=== PATIENT | male | born 1990 | race Caucasian/White ===

== ENCOUNTER 2020-01-14 23:41 | Emergency (ER) | payer BC ==
[~2020-01-14] VITALS: Ht 180.3 cm; Wt 102.3 kg
[2020-01-14 23:45] VITALS: Ht 180.3 cm; Wt 102.3 kg
[2020-01-14] MEDS ORDERED: ADDERALL 30 MG30 MG PO (23:46)
[2020-01-15 00:22] LABS: SPECIFIC GRAVITY 1.015 (1.005-1.020)
[2020-01-15 00:23] LABS: BILIRUBIN NEGATIVE (NEGATIVE); GLUCOSE NEGATIVE (NEGATIVE); KETONE NEGATIVE (NEGATIVE); NITRITE NEGATIVE (NEGATIVE); UROBILINOGEN NORMAL (NORMAL)
[2020-01-15 00:35] VITALS: BP 147/90
== END 2020-01-15 00:32 | disposition home or self-care (01) ==
LOC: D.ER 23:41
PROVIDERS: Family Medicine
DX: N36.9 Urethral disorder, unspecified (principal)